=== PATIENT | male | born 1970 | race Caucasian/White ===

== ENCOUNTER 2017-08-16 16:16 | Emergency (ER) | payer MEDICAID ==
[~2017-08-16] VITALS: Ht 177.8 cm; Wt 76.0 kg
[2017-08-16 16:33] VITALS: BP 128/91
[2017-08-16 17:56] LABS: HEPATITIS B SURFACE AB 5.3 mIU/mL
[2017-08-16 18:07] LABS: HEPATITIS B SURFACE ANTIGEN NEGATIVE
[2017-08-18 10:07] LABS: HEPATITIS B CORE ANTIBODY Negative (Negative); HIV SCREEN 4G Non Reactive (Non Reactive)
== END 2017-08-16 21:53 | disposition home or self-care (01) ==
LOC: ER 16:16
DX: Z77.21 Contact with and (suspected) exposure to potentially hazardous body fluids (principal)
CPT/HCPCS: 87186; 99284